=== PATIENT | male | born 1990 | race Two or more races ===

== ENCOUNTER 2020-12-18 12:13 | Emergency (ER) | payer SELFPAY ==
[~2020-12-18] VITALS: Ht 167.6 cm; Wt 76.2 kg
--- NOTE | 2020-12-18 12:19 | NUR ---
TO ER BED 2, C/O PITBULL BITE ON RT LOWER CHEEK, Diane&MD JARRELL AT BEDSIDE FOR EVAL
[2020-12-18] MEDS ORDERED: AMOX-427 PO (12:24)
[2020-12-18] MEDS ORDERED: TDAP [DIPH/PERTUSSIS/TET] 0.5 ML VIAL IM ONE ×2 (12:28→12:30)
[2020-12-18 12:35] VITALS: BP 141/83
== END 2020-12-18 12:36 | disposition home or self-care (01) ==
LOC: ER 12:13
DX: S00.81XA Abrasion of other part of head, initial encounter (principal); W54.0XXA Bitten by dog, initial encounter; Y93.89 Activity, other specified; Y92.89 Other specified places as the place of occurrence of the external cause; Y99.8 Other external cause status
CPT/HCPCS: 90471; 90715; 99283; A6403